=== PATIENT | female | born 1960 | race Caucasian/White ===

== ENCOUNTER 2018-07-28 07:22 | Day surgery (SDC) | payer MEDICARE ==
[~2018-07-28] VITALS: Ht 160 cm; Wt 140.5 kg
[2018-07-28] VITALS (11 sets, daily range): BP systolic 110–168; BP diastolic 61–89; PULSE 85–102; TEMP 97.8
[2018-07-28] MEDS ORDERED: PRILOSEC 20MG20 MG PO (08:11)
[2018-07-28] MEDS ORDERED: CLARITIN 1010 MG/TAB PO (08:11)
[2018-07-28] MEDS ORDERED: FLONASEALLERGY NS (08:12)
[2018-07-28] MEDS ORDERED: GLUCOPHAGE1000 MG PO (08:13)
[2018-07-28] MEDS ORDERED: ARMOUR THYROID15 MG (08:16)
[2018-07-28 08:40] LABS: HEMATOCRIT 42.3 % (37.0-47.0); HEMOGLOBIN 12.6 g/dl (12.5-16.0); MEAN CELL VOLUME 89 fl (80.0-100.0); MEAN CORPUSCULAR HEMOGLOBIN 26 pg (27.0-31.0); MEAN CORPUSCULAR HGB CONC 30 g/dl (33.0-37.0); PLATELET COUNT 212 K/mm3 (130-400); RED BLOOD COUNT 4.77 M/mm3 (4.10-5.30); REDCELL DISTRIBUTION WIDTH-CV 14.5 % (11.5-14.5)
[2018-07-28 08:50] LABS: INR 1.1 (0.8-3.0); PROTHROMBIN TIME 12.4 SECONDS (9.7-12.8)
[2018-07-28 09:14] LABS: CALCIUM 9.1 mg/dL (8.4-10.2); CREATININE, serum 0.57 mg/dL (0.52-1.25); POTASSIUM 4.1 mmol/L (3.4-5.0)
--- NOTE | 2018-07-28 09:17 | NUR ---
ALL MEDICATIONS GIVEN VIA VERBAL ORDER WITH READBACK WITH MD. SEE MERGE FOR ALL MEDICATION ADMIN TIMES.
--- NOTE | 2018-07-28 10:30 | NUR ---
PT TO [facility] [address]ED [address] SWEEPER, FATHER WITH PT, REVIEWED ACTIVITY AND PRECAUTIONS WITH PT ON LYING FLAT AND NOT BEDING RIGHT LEG, CALL LIGHT IN REACH, SITE HAS TEGRADERM ONLY OVER PUNCTURE.
--- NOTE | 2018-07-28 10:45 | NUR ---
PT C/O HEADACHE, TYLENOL GIVEN ORDERED, OTHER ASSESSMENT REMAINS THE SAME, DECLINES FOOD AT THIS TIME, SIPS ON WATER
[2018-07-28] MEDS ORDERED: ASPIRIN E.C. 8181 MG PO (11:28)
[2018-07-28] MEDS ORDERED: IMDUR 60MG60 MG/TAB PO (11:29)
[2018-07-28] MEDS ORDERED: LOPRESSOR 225 MG/TAB PO (11:29)
--- NOTE | 2018-07-28 11:45 | NUR ---
CON'T SAME, PT EATS FRUIT. STATES H/A IS FEELING BETTER, NO OTHER REQUESTS
--- NOTE | 2018-07-28 13:15 | NUR ---
used pillows behind back for comfort, reviewed with pt discharge inst. on new RX x3, will pickup at [facility], information given. Also appt made for pt for followup. Reviewed activity with pt on site, how to care for site, shower and precautions with verbal understanding.
[2018-07-28] MEDS ORDERED: LIPITOR 80MG80 MG PO (13:35)
--- NOTE | 2018-07-28 14:30 | NUR ---
pt sat on edge of bed, tolerated well, walked to b/r to void via cane, gait steady. site unchanged. IV d'cd intact. pt up in room, dressed self, has discharge paper work, discharged via w/c at 1445 to car with father
== END 2018-07-28 14:45 | disposition home or self-care (01) ==
LOC: COL.CAR 07:22 → EDBD 07:30 → COL.CAR 14:45
PROVIDERS: Internal Medicine Cardiovascular Disease
DX: I25.10 Atherosclerotic heart disease of native coronary artery without angina pectoris (principal); R94.39 Abnormal result of other cardiovascular function study; E11.9 Type 2 diabetes mellitus without complications; E66.01 Morbid (severe) obesity due to excess calories; Z68.43 Body mass index [BMI] 50.0-59.9, adult; G47.33 Obstructive sleep apnea (adult) (pediatric); F41.8 Other specified anxiety disorders; F32.9 Major depressive disorder, single episode, unspecified; M79.7 Fibromyalgia; Z88.1 Allergy status to other antibiotic agents; Z88.6 Allergy status to analgesic agent; Z91.030 Bee allergy status; Z79.51 Long term (current) use of inhaled steroids; Z79.84 Long term (current) use of oral hypoglycemic drugs; Z87.891 Personal history of nicotine dependence; Z83.3 Family history of diabetes mellitus; Z82.3 Family history of stroke; Z82.49 Family history of ischemic heart disease and other diseases of the circulatory system
CPT/HCPCS: C1760; C1769; C1887; C1894; J0153; J1644; J2250; J3010; Q9967

== ENCOUNTER 2023-12-21 16:26 | Inpatient (IN) | payer MEDICARE, OTHER ==
[~2023-12-21] VITALS: Ht 160 cm; Wt 137.0 kg
[2023-12-21] VITALS (7 sets, daily range): BP systolic 83–140; BP diastolic 50–81; PULSE 84–157; TEMP 98.2–99.4
[~2023-12-21 16:26] MED LIST: ARMOUR THYROID15 MG; ASPIRIN E.C. 8181 MG PO; CLARITIN 1010 MG/TAB PO; FLONASEALLERGY NS; GLUCOPHAGE1000 MG PO; IMDUR 60MG60 MG/TAB PO; LIPITOR 80MG80 MG PO; LOPRESSOR 225 MG/TAB PO; PRILOSEC 20MG20 MG PO
[2023-12-21] MEDS ORDERED: NOVOLOG FLEX100 U/ML SQ (17:34)
[2023-12-21] MEDS ORDERED: SYNTHROID 0.0.025 MG PO (17:36)
[2023-12-21] MEDS ORDERED: LOPRESSOR 550 MG/TAB PO (17:38)
[2023-12-21] MEDS ORDERED: ULTRAM 50MG TAB50 MG PO ×2 (17:39→21:33)
[2023-12-21] MEDS ORDERED: HCTZ 25MG TAB25 MG PO (17:40)
[2023-12-21] MEDS ORDERED: BASAGLAR K100 UNIT/1 SQ (17:40)
[2023-12-21] MEDS ORDERED: MAG-OX 400400 MG/TAB PO (17:41)
[2023-12-21] MEDS ORDERED: ZINC7.5 MG PO (17:42)
[2023-12-21] MEDS ORDERED: Amiodarone 450 MG in D5W Excel 250 ML IV SCH ×2 (17:45→23:51)
[2023-12-21] MEDS ORDERED: *Potassium Replacement Protocol MC SCH ×2 (17:45→20:15)
[2023-12-21] MEDS ORDERED: Heparin 5,000 UNITS/ML 1 ML VIAL IV PRN (17:45)
[2023-12-21] MEDS ORDERED: Heparin/D5W 250 ML IV SCH (17:45)
[2023-12-21] MEDS ORDERED: metFORMIN 500 MG TAB PO SCH (17:59)
[2023-12-21] MEDS ORDERED: Insulin Lispro (HumaLOG) SQ SCH (18:00)
[2023-12-21] MEDS ORDERED: Insulin Glargine-ygfn (Lantus) SQ SCH (18:00)
[2023-12-21] MEDS ORDERED: Dextrose 50% Water 25 GM/50 ML SYRINGE IV PRN (18:00)
[2023-12-21] MEDS ORDERED: hydroCHLOROthiazide 25 MG TAB PO SCH (18:00)
[2023-12-21] MEDS ORDERED: Glucagon 1 MG VIAL IM PRN (18:00)
[2023-12-21] MEDS ORDERED: Dextrose (Glucose) 15 GM (4 x 3.75 GM) Chewable TABLET PACK PO PRN (18:00)
[2023-12-21] MEDS ORDERED: Metoprolol Tartrate 50 MG TAB PO SCH ×2 (18:00→21:00)
--- NOTE | 2023-12-21 18:00 | NUR ---
PT ON THE FLOOR VIA EMS. PER [facility] AT [facility] DURING REPORT, 1 BEG BUG NOTED ON PTS SHOE. PER REPORT PT DIDNT GET A SHOWER OR BED BATH AT [facility]. UPON ARRIVAL PT ESCORTED TO ROOM 359 AND SHOWERED BY THIS RN AND PCT. PT STATES "THIS IS DISCRIMINATORY", THIS NURSE EDUCATED PT ON PROTOCOLS AND THAT IT IS FOR PREVENTION. NO BED BUGS NOTED DURING SHOWER. PT PLACED IN FALL RISK ITEMS AND ESCORTED TO ROOM 357 VIA WHEELCHAIR. PT HAS 2 IV SITES TO LEFT FOREARM. AMIODARONE RUNNING AT 1 MG/MIN DURING EMS TRANSFER. PT DENIES PAIN. FAVIO SKIN NOTED UNDER PANUS AND UNDER BREASTS. PT DENIES NEEDS. BED IN LOWEST POSITION, CALL LIGHT IN REACH, BED ALARM ON
[2023-12-21 18:11] LABS: MEAN CELL VOLUME 79 fl (80.0-100.0); MEAN CORPUSCULAR HGB CONC 30 g/dl (33.0-37.0); MEAN PLATELET VOLUME 10.5 fl (7.4-10.4); PLATELET COUNT 312 K/mm3 (130-400); RED BLOOD COUNT 3.44 M/mm3 (4.10-5.30)
[2023-12-21 18:13] LABS: HEMATOCRIT 27.3 % (37.0-47.0); HEMOGLOBIN 8.1 g/dl (12.5-16.0); MEAN CORPUSCULAR HEMOGLOBIN 24 pg (27-31); PARTIAL THROMBOPLASTIN TIME 30.2 SECONDS (26.0-37.0)
[2023-12-21 18:23] LABS: CALCIUM 9.2 mg/dL (8.4-10.2); CREATININE, serum 1.71 mg/dL (0.57-1.11); POTASSIUM 3.2 mEq/L (3.5-4.5)
--- NOTE | 2023-12-21 18:30 | NUR ---
BLOOD SUGAR TAKEN BEFORE FACILITY WRISTBAND PLACED. BLOOD SUGAR 91 PER PCT
--- NOTE | 2023-12-21 19:45 | NUR ---
PT REPORTS TAKING LOPRESSOR, HCTZ, AND SYNTHROID THIS MORNING AND REFUSES AT THIS TIME. NEW AMIODARONE BAG HUNG AT 1 MG/MIN. HEPARIN BOLUS GIVEN AND HEPARIN DRIP STARTED AT 23 MLS/HR, COSIGNED WITH ROMERO ASIF. PT DENIES NEEDS. BED IN LOWEST POSITION, CALL LIGHT IN REACH, BED ALARM ON. REPORT GIVEN TO ROMERO ASIF
--- NOTE | 2023-12-21 20:00 | NUR ---
UPON SHIFT ASSESSMENT, PATIENT SITTING ON SIDE OF BED C/O SOA. LUNG SOUNDS CLEAR, O2 SAT 95 % ON RA. HEPARIN GTTS RUNNING IN LT FA AT 23ML/HR AND AMIO DRIP RUNNING AT 17.6 ML/HR. PATIENT EXHIBITS EMMANUEL WHILE CHANGING POSITION. PATIENT STILL TACHYCARDIC AT 150 BPM.
[2023-12-21] MEDS ORDERED: Potassium Bicarbonate/Citrate 20 MEQ Effervescent TAB PO SCH (20:15)
[2023-12-21] MEDS ORDERED: Atorvastatin 80 MG TAB PO SCH (21:00)
--- NOTE | 2023-12-21 21:00 | NUR ---
PATIIENT HR IMPROVING FROM 155 BPM TO 100.
[2023-12-21] MEDS ORDERED: traMADol 50 MG TAB PO SCH (21:34)
--- NOTE | 2023-12-21 21:48 | NUR ---
PATIENT APPEARS DIAPHORETIC PATIENT C/O OF CHEST TIGHTNESS AND SOA. CALL PLACED TO HOSPITALIST. VORB FOR TROPININ AND EKG GIVEN. VS CURRENTLY WNL.
--- NOTE | 2023-12-21 22:03 | NUR ---
ENTERED PATIENT'S ROKOM. PATIENT C/O OF THROAT "FEELING LIKE A TIRE IS WRAPPED AROUND IT". THROAT SOUNDS ARE CLEAR AND AIR WAY PATENT, RT CALLED AND CONFIRMED NO AIRWAY RESTRICTIION. VS ARE WNL.
--- NOTE | 2023-12-21 22:30 | NUR ---
CALL PLACED TO HOSPITALIST TROPONIN ELEVATED 0.070. REPEAT VITALS-83/50 BP.VORB TO BOULUS 500ML NS GIVEN. PLACED PATIENT IN TRENDELENBERG.
[2023-12-21 23:52] LABS: URINE APPEARANCE CLEAR (CLEAR/HAZY); URINE BLOOD NEGATIVE (NEGATIVE); URINE COLOR YELLOW (YELLOW); URINE GLUCOSE NEGATIVE (NEGATIVE); URINE KETONE NEGATIVE (NEGATIVE); URINE NITRATE NEGATIVE (NEGATIVE); URINE PROTEIN(semi-quant) NEGATIVE (NEGATIVE); URINE UROBILINOGEN 0.2 E.U/dL (0.2-1.0)
[2023-12-22] VITALS (18 sets, daily range): BP systolic 75–143; BP diastolic 50–96; PULSE 66–90; TEMP 97.8–98
[2023-12-22 00:18] LABS: COLLECTION METHOD CLEAN CATCH
[2023-12-22] MEDS ORDERED: Ondansetron 4 MG/2 ML VIAL IV PRN (00:30)
--- NOTE | 2023-12-22 01:10 | NUR ---
CALL PLACED TO HOSPITALIST, WHEN PATIENTHOB WAS ELEVATED TO 30 DEGREES PATIENT BECAME HYPOTENSIVE 75/50 AND WHEN PLACED IN TRENDELENBERG BP WAS 131/76. ORDERS TO BOLUS REMAINDER OF 500ML OF NS GIVEN.
--- NOTE | 2023-12-22 01:36 | NUR ---
500 ML BOLUS COMPLETE BP 92/55 PULSE 79 O2 99% ON 6L OXY MASK
[2023-12-22 02:43] LABS: BASO # 0.1 K/mm3 (0.0-0.2); BASO % 0.7 % (0.0-2.0); EOS % 0.2 % (0.0-4.0); GRAN # 12.2 K/mm3 (1.4-6.5); GRAN % 80.2 % (42.2-75.2); LYMPH # 1.4 K/mm3 (1.2-3.4); LYMPH % 9.4 % (20.0-51.0); MEAN CELL VOLUME 80 fl (80.0-100.0); MEAN CORPUSCULAR HGB CONC 29 g/dl (33.0-37.0); MEAN PLATELET VOLUME 10.8 fl (7.4-10.4); MONO # 1.3 K/mm3 (0.1-0.6); MONO % 8.7 % (1.7-9.3); PLATELET COUNT 361 K/mm3 (130-400); RED BLOOD COUNT 3.74 M/mm3 (4.10-5.30); REDCELL DISTRIBUTION WIDTH-CV 16.1 % (11.5-14.5)
[2023-12-22 02:45] LABS: HEMOGLOBIN 8.7 g/dl (12.5-16.0); MEAN CORPUSCULAR HEMOGLOBIN 23 pg (27-31)
[2023-12-22 03:15] LABS: ALBUMIN 3.4 g/dL (3.4-4.8); CALCIUM 9.4 mg/dL (8.4-10.2); CREATININE, serum 2.19 mg/dL (0.57-1.11); MAGNESIUM 2.1 mg/dL (1.6-2.6); PHOSPHOROUS 4.9 mg/dL (2.3-4.7)
[2023-12-22] MEDS ORDERED: Isosorbide Mononitrate CR (24-HR) 60 MG TAB PO SCH (07:30)
--- NOTE | 2023-12-22 07:45 | NUR ---
Awake and resting in bed; Patient reports some shortness of breath at rest but states it is "better". 02 currenlty 100% on 4L oxymask. Switched to 3L NC due to o2 reading 100%. Still reports feeling generally tired and endorses lower back pain which is chronic in nature. Pain medication to be administered with am medications and assisted with repositioning. Call light left within reach. Will continue to monitor.
--- NOTE | 2023-12-22 08:59 | NUR ---
pull worker met with patient to discuss discharge planning. Patient currently lives in [place] with her mother, father and brother. Patient reports her mother is her best point of contact, Yasmin, P# [phone]. PCP is Dr. Watkins, Pharmacy is [facility]. Patient reports she has "[employer]", [employer], [employer]. No DPOA-HC and patient was not interested in completing one during the hospital stay. DME is cane and CPAP. Patient is not on oxygen normally during the day. Patient reports that she "insists" on being independent with ADLS unless she is having a really bad day. Patient reports to be able to transport herself to appointments if needed but has family to assist her with this. Patient would like to return home at time of discharge. Discharge plan: Home
[2023-12-22] MEDS ORDERED: NS 1,000 ML IV SCH (09:45)
[2023-12-22] MEDS ORDERED: 1/2 NS 1,000 ML IV SCH (09:45)
[2023-12-22] MEDS ORDERED: 1/2 NS 500 ML IV SCH (09:45)
[2023-12-22] MEDS ORDERED: cefTRIAXone 2 G in Water For Injection,Sterile 20 ML IV SCH (09:45)
[2023-12-22] MEDS ORDERED: GLUCOPHAGE XR500 M1 PO (09:48)
--- NOTE | 2023-12-22 11:03 | NUR ---
Initial visit; Telegraph Inspector introduced herself to patient who declined spiritual care immediately. Telegraph Inspector wished her well.
[2023-12-22 12:35] LABS: INR 1.7 (0.8-3.0); PROTHROMBIN TIME 18.3 SECONDS (9.7-12.8)
--- NOTE | 2023-12-22 12:38 | NUR ---
PATIENT DROWSY BUT RESPONDS APPROPRIATELY. VSS. PATIENT DENIES PAIN OR NAUSEA. TO CONTINUE IV FLUIDS, AMIODARONE, AND IV HEPARIN PER PROVIDER'S INSTRUCTIONS. PATIENT PROVIDED CALL LIGHT, BED TO LOWEST POSITION, X3 BEDRAILS IN PLACE. PATIENT CONTINUED ON 2 L/MIN O2. TRANSFER OF CARE REPORT TO ROMERO GOLDEN.
--- NOTE | 2023-12-22 14:00 | NUR ---
Patient has voided just once this shift and had 150 ml of orange concentrated apprearing urine. NS running at 75 ml/hr. Discussed with hospitalist and suspects kidney injury due to IV contrast, which would not be improved with increasing IV intake. Will continue to monitor but no changes made to IV therapy at this time.
--- NOTE | 2023-12-22 19:29 | NUR ---
PATIENT LAYING IN BED, ALERT AND CALM. IV'S IN LEFT HAND AND FOREARM. ON 2L OXYGEN NASAL CANNULA. NO ACUTE EVENTS.
[2023-12-22] MEDS ORDERED: Acetaminophen 325 MG TAB PO PRN (22:00)
[2023-12-22 23:03] LABS: PARTIAL THROMBOPLASTIN TIME 71.1 SECONDS (26.0-37.0)
[2023-12-23] VITALS: BP 116/62; PULSE 72
[2023-12-23 04:00] VITALS: BP 134/72; PULSE 70
[2023-12-23 05:54] LABS: PARTIAL THROMBOPLASTIN TIME 92.1 SECONDS (26.0-37.0)
[2023-12-23 06:22] LABS: BASO # 0.1 K/mm3 (0.0-0.2); BASO % 0.8 % (0.0-2.0); EOS # 0.1 K/mm3 (0.0-0.7); EOS % 0.9 % (0.0-4.0); GRAN # 8.8 K/mm3 (1.4-6.5); GRAN % 74.5 % (42.2-75.2); LYMPH # 1.8 K/mm3 (1.2-3.4); LYMPH % 14.8 % (20.0-51.0); MEAN CELL VOLUME 81 fl (80.0-100.0); MEAN CORPUSCULAR HGB CONC 29 g/dl (33.0-37.0); MEAN PLATELET VOLUME 10.6 fl (7.4-10.4); MONO % 8.4 % (1.7-9.3); PLATELET COUNT 335 K/mm3 (130-400); RED BLOOD COUNT 3.49 M/mm3 (4.10-5.30); REDCELL DISTRIBUTION WIDTH-CV 16.4 % (11.5-14.5)
[2023-12-23 06:26] LABS: HEMATOCRIT 28.1 % (37.0-47.0); HEMOGLOBIN 8.1 g/dl (12.5-16.0); MEAN CORPUSCULAR HEMOGLOBIN 23 pg (27-31)
[2023-12-23 06:34] LABS: ALBUMIN 3.4 g/dL (3.4-4.8); CREATININE, serum 2.42 mg/dL (0.57-1.11); PHOSPHOROUS 4.6 mg/dL (2.3-4.7); POTASSIUM 3.5 mEq/L (3.5-4.5)
[2023-12-23] MEDS ORDERED: Potassium Bicarbonate/Citrate 20 MEQ Effervescent TAB PO ONE (06:45)
[2023-12-23] MEDS ORDERED: Potassium Chloride 100 ML IV SCH (06:45)
[2023-12-23] MEDS ORDERED: Insulin Lispro (HumaLOG) SQ SCH (08:00)
--- NOTE | 2023-12-23 09:31 | NUR ---
disposal worker attended interdisciplinary clinical rounding with Dr. Aranda. Jeremy should be able to move to the medical floor this afternoon. Discharge plan: Home
[2023-12-23] MEDS ORDERED: Amiodarone 200 MG TAB PO SCH (10:05)
[2023-12-23] MEDS ORDERED: Apixaban 5 MG TABLET PO SCH (10:07)
[2023-12-23 12:00] VITALS: BP 120/47; PULSE 77; TEMP 98
[2023-12-23 13:02] LABS: PARTIAL THROMBOPLASTIN TIME 69.3 SECONDS (26.0-37.0)
--- NOTE | 2023-12-23 14:09 | NUR ---
Patient received medical floor orders and was transferred to room 308. Personal belongings including CPAP, cell phone, IPAD, and tap grinder was transported to room. Alert and oriented, no complaints at this time. Report given to ROMERO Campbell.
[2023-12-23 15:53] VITALS: BP 104/65; PULSE 83; TEMP 98.8
--- NOTE | 2023-12-23 19:00 | NUR ---
SCOTT CASTELLANOS NOTIFIED @ 1900 THAT PT HAD A FEW BEATS OF V-TACH, BUT IF BACK IN NSR. NO NEW ORDERS AT THIS TIME
[2023-12-23 20:01] VITALS: BP 113/75; PULSE 91; TEMP 97.9
--- NOTE | 2023-12-23 20:36 | NUR ---
UPON SHIFT ASSESSMENT PATIENT WAS WEARING HOME CPAP AND AXO X4 LYING SUPINE IN BED. IV SITES TO LT ARM SHOWED MINIMAL BRIGHT RED BLOOD UNDER TEGADERM-FLUSHED WITH NO COMPLICATIONS. TELE IS CURRENTLY NS AND LUNG SOUNDS ARE CLEAR BUT SLIGHTLY DIMINISHED. PATIENT DENIES CHEST PAIN. EMMANUEL NOTED WHILE PATIENT AMBULATED TO RESTROOM, BUT RECOVERED WHEN RETURNED TO BED . VS ARE WNL AND BG 120. CALL LIGHT WITHIN REACH AND BED ALARM ON.
--- NOTE | 2023-12-23 20:43 | NUR ---
PANNUS EXCORIATED INTERDRY PLACED
[2023-12-24 00:01] VITALS: BP 110/76; PULSE 82; TEMP 98.5
[2023-12-24 03:20] VITALS: BP 103/46; PULSE 79; TEMP 98.5
--- NOTE | 2023-12-24 05:21 | NUR ---
CALL PLACED TO HOSPITALISTSCOTT. PATIENT RECIEVED SCHEDULED BEDSIDE EKG AND IS CURRENTLY IN A-FIB AT 87 BPM. TORB TO PASS ALONG TO CARDIOLOGY GIVEN. PATIENT VS ARE STABLE AND SHE DENIEES CHEST PAIN OR SOA AT THIS TIME.
--- NOTE | 2023-12-24 06:16 | NUR ---
call placed to [employer] freight trucker on-call. Got answering service and relayed message to tab cutting machine operator: EKG results-AFIB rate controlled at 87bpm.
[2023-12-24 06:49] LABS: BASO # 0.1 K/mm3 (0.0-0.2); BASO % 0.9 % (0.0-2.0); EOS # 0.2 K/mm3 (0.0-0.7); EOS % 1.8 % (0.0-4.0); GRAN # 8.2 K/mm3 (1.4-6.5); GRAN % 77.6 % (42.2-75.2); LYMPH # 1.1 K/mm3 (1.2-3.4); LYMPH % 10.8 % (20.0-51.0); MEAN CELL VOLUME 79 fl (80.0-100.0); MEAN CORPUSCULAR HGB CONC 29 g/dl (33.0-37.0); MEAN PLATELET VOLUME 10.1 fl (7.4-10.4); MONO # 0.9 K/mm3 (0.1-0.6); PLATELET COUNT 300 K/mm3 (130-400); REDCELL DISTRIBUTION WIDTH-CV 16.2 % (11.5-14.5)
[2023-12-24 06:52] LABS: HEMATOCRIT 26.8 % (37.0-47.0); HEMOGLOBIN 7.7 g/dl (12.5-16.0); MEAN CORPUSCULAR HEMOGLOBIN 23 pg (27-31)
[2023-12-24 07:11] LABS: ALBUMIN 3.3 g/dL (3.4-4.8); CALCIUM 9.3 mg/dL (8.4-10.2); CREATININE, serum 1.59 mg/dL (0.57-1.11); MAGNESIUM 2.1 mg/dL (1.6-2.6); PHOSPHOROUS 2.7 mg/dL (2.3-4.7); POTASSIUM 3.4 mEq/L (3.5-4.5)
--- NOTE | 2023-12-24 07:20 | NUR ---
Bedside report received from RN Shaila. Pt is awake sitting on side of bed with no complaints. Call light within reach.
[2023-12-24 08:06] VITALS: BP 123/73; PULSE 78; TEMP 98.1
[2023-12-24] MEDS ORDERED: Potassium Bicarbonate/Citrate 20 MEQ Effervescent TAB PO SCH (08:30)
[2023-12-24] MEDS ORDERED: ELIQUIS 5MG PO (10:21)
[2023-12-24] MEDS ORDERED: PACERONE400 MG PO (10:22)
--- NOTE | 2023-12-24 11:11 | NUR ---
Discharge instructions provided to pt and pt verbalized understanding of discahrge paperwork. INT to LH and LFA discontinued with tip intact, pt tolerated well with no complaints. Pt is leaving facility with family member.
[2023-12-24 11:45] VITALS: BP 83/46; PULSE 105; TEMP 98.3
--- NOTE | 2023-12-24 13:14 | NUR ---
Oil Recovery Operator met with patient to present and review IM form. Patient verbalized understanding and provided signature. SW placed form in chart and provided copy to patient.
== END 2023-12-24 11:59 | disposition home or self-care (01) | DRG 309 ==
LOC: MEDICAL 16:26 → ICU 12-22 02:12 → MEDICAL 12-23 13:54 → ICU 12-23 13:54 → MEDICAL 12-23 13:54
PROVIDERS: Internal Medicine; ADMIT Internal Medicine
PROC: 5A2204Z Restoration of Cardiac Rhythm, Single (ICD-10-PCS; principal; 2023-12-22)
DX: I48.0 Paroxysmal atrial fibrillation (principal); N17.9 Acute kidney failure, unspecified; N39.0 Urinary tract infection, site not specified; Z68.43 Body mass index [BMI] 50.0-59.9, adult; G47.33 Obstructive sleep apnea (adult) (pediatric); I25.10 Atherosclerotic heart disease of native coronary artery without angina pectoris; K21.9 Gastro-esophageal reflux disease without esophagitis; I13.10 Hypertensive heart and chronic kidney disease without heart failure, with stage 1 through stage 4 chronic kidney disease, or unspecified chronic kidney disease; E11.22 Type 2 diabetes mellitus with diabetic chronic kidney disease; E66.01 Morbid (severe) obesity due to excess calories; I48.92 Unspecified atrial flutter; M19.90 Unspecified osteoarthritis, unspecified site; G43.909 Migraine, unspecified, not intractable, without status migrainosus; D64.9 Anemia, unspecified; E87.6 Hypokalemia; I08.1 Rheumatic disorders of both mitral and tricuspid valves; N18.32 Chronic kidney disease, stage 3b; E03.9 Hypothyroidism, unspecified; Z79.4 Long term (current) use of insulin; Z79.82 Long term (current) use of aspirin; Z79.84 Long term (current) use of oral hypoglycemic drugs; Z79.899 Other long term (current) drug therapy; Z79.890 Hormone replacement therapy; Z88.2 Allergy status to sulfonamides; Z88.8 Allergy status to other drugs, medicaments and biological substances; Z91.030 Bee allergy status; Z99.89 Dependence on other enabling machines and devices; Z87.891 Personal history of nicotine dependence
CPT/HCPCS: J0282; J0696; J1644; J1815; J2405; J2704; J7030; J7060

== ENCOUNTER 2024-03-03 17:37 | Inpatient (IN) | payer MEDICARE, OTHER ==
[~2024-03-03] VITALS: Ht 160 cm; Wt 127.3 kg
[2024-03-03] VITALS (11 sets, daily range): BP systolic 94–138; BP diastolic 46–62; PULSE 63–74; TEMP 98.1–98.8
[~2024-03-03 17:37] MED LIST changes: +BASAGLAR K100 UNIT/1 SQ; +ELIQUIS 5MG PO; +GLUCOPHAGE XR500 M1 PO; +HCTZ 25MG TAB25 MG PO; +LOPRESSOR 550 MG/TAB PO; +MAG-OX 400400 MG/TAB PO; +NOVOLOG FLEX100 U/ML SQ; +PACERONE400 MG PO; +SYNTHROID 0.0.025 MG PO; +ULTRAM 50MG TAB50 MG PO; +ZINC7.5 MG PO
[2024-03-03] MEDS ORDERED: Ondansetron 4 MG/2 ML VIAL IV ONE (18:00)
[2024-03-03] MEDS ORDERED: NS 1,000 ML IV ONE (18:00)
[2024-03-03 18:12] LABS: INR 5.4 (0.8-3.0); PROTHROMBIN TIME 56.5 SECONDS (9.7-12.8)
[2024-03-03 18:15] LABS: BASO # 0.1 K/mm3 (0.0-0.2); BASO % 0.9 % (0.0-2.0); EOS # 0.2 K/mm3 (0.0-0.7); EOS % 1.3 % (0.0-4.0); GRAN # 9.1 K/mm3 (1.4-6.5); GRAN % 77.3 % (42.2-75.2); LYMPH # 1.4 K/mm3 (1.2-3.4); LYMPH % 11.6 % (20.0-51.0); MEAN CELL VOLUME 74 fl (80.0-100.0); MEAN CORPUSCULAR HGB CONC 26 g/dl (33.0-37.0); MEAN PLATELET VOLUME 11.4 fl (7.4-10.4); MONO % 8.3 % (1.7-9.3); PLATELET COUNT 400 K/mm3 (130-400); RED BLOOD COUNT 2.42 M/mm3 (4.10-5.30); REDCELL DISTRIBUTION WIDTH-CV 17.9 % (11.5-14.5)
[2024-03-03 18:16] LABS: MEAN CORPUSCULAR HEMOGLOBIN 19 pg (27-31)
[2024-03-03 18:17] LABS: HEMOGLOBIN 4.6 g/dl (12.5-16.0)
[2024-03-03 18:25] LABS: ALANINE AMINOTRANSFERASE 11 U/L (0-55); ALBUMIN 3.8 g/dL (3.4-4.8); ALKALINE PHOSPHATASE 73 U/L (40-150); ANION GAP 17 mmol/L (7-16); AST,SGOT 19 U/L (5-34); BILIRUBIN,TOTAL 0.9 mg/dL (0.2-1.2); BLOOD UREA NITROGEN 28 mg/dL (10-20); CALCIUM 9.8 mg/dL (8.4-10.2); CHLORIDE 100 mEq/L (98-107); CREATININE, serum 1.81 mg/dL (0.57-1.11); GLUCOSE 139 mg/dL (70-99); POTASSIUM 3.7 mEq/L (3.5-4.5); SODIUM 140 mEq/L (136-145); TOTAL PROTEIN 7.9 g/dl (6.2-8.1)
[2024-03-03 18:35] LABS: ACETONE,SERUM NEGATIVE
[2024-03-03 20:07] LABS: RETIC # 0.07 M/mm3 (0.02-0.16); RETIC % 3.3 % (0.5-3.52)
[2024-03-03] MEDS ORDERED: Furosemide 40 MG/4 ML VIAL IV ONE (20:15)
[2024-03-03] MEDS ORDERED: Ondansetron 4 MG/2 ML VIAL IV PRN (21:00)
[2024-03-03] MEDS ORDERED: Acetaminophen 500 MG TAB PO PRN (21:00)
[2024-03-03] MEDS ORDERED: Polyethylene Glycol 3350 17 GM PDS PO PRN (21:00)
[2024-03-03] MEDS ORDERED: Promethazine 25 MG TAB PO PRN (21:00)
[2024-03-03] MEDS ORDERED: Dextrose (Glucose) 15 GM (4 x 3.75 GM) Chewable TABLET PACK PO PRN (21:30)
[2024-03-03] MEDS ORDERED: Insulin Glargine-ygfn (Lantus) SQ SCH (21:30)
[2024-03-03] MEDS ORDERED: Dextrose 50% Water 25 GM/50 ML SYRINGE IV PRN (21:30)
[2024-03-03] MEDS ORDERED: Glucagon 1 MG VIAL IM PRN (21:30)
[2024-03-03 22:24] LABS: URINE APPEARANCE CLEAR (CLEAR/HAZY); URINE BLOOD NEGATIVE (NEGATIVE); URINE COLOR YELLOW (YELLOW); URINE GLUCOSE NEGATIVE (NEGATIVE); URINE KETONE NEGATIVE (NEGATIVE); URINE NITRATE NEGATIVE (NEGATIVE); URINE PROTEIN(semi-quant) NEGATIVE (NEGATIVE); URINE UROBILINOGEN 0.2 E.U/dL (0.2-1.0)
[2024-03-03 22:47] LABS: COLLECTION METHOD CLEAN CATCH
--- NOTE | 2024-03-03 22:50 | NUR ---
Arrived to medical floor via stretcher from ER- was able to walk with assist to bed, Alert/oriented, Blood infusing at 150cc/hr to L/ac IV site, Vitals taken , stable, pt tolerating blood without signs of adverse reactions- will start admission paperwork at this time.
[2024-03-03] MEDS ORDERED: PACERONE200 MG PO (23:03)
[2024-03-03] MEDS ORDERED: LIPITOR 80MG80 MG PO (23:09)
[2024-03-03] MEDS ORDERED: ASPIRIN E.C. 8181 MG PO (23:10)
[2024-03-04] VITALS (10 sets, daily range): BP systolic 98–136; BP diastolic 45–76; PULSE 67–73; TEMP 97.4–98.6
--- NOTE | 2024-03-04 00:15 | NUR ---
Blood transfusion completed- no signs/symptoms of adverse reactions-Pt on fall risk- protocol followed/bed alarm on, SCD,s on per orders, tele on -71/NSR
[2024-03-04] MEDS ORDERED: Acetaminophen 500 MG TAB PO PRN (00:54)
--- NOTE | 2024-03-04 03:25 | NUR ---
Called Dr. Crum regarding a couple thing- labs urine specimen ?UTI , also repeat Hgb after blood? ordered for 0500-is that still ok or sooner? Also informed I had to change the med rec because it was not correct from the ER and she had already ordered some meds,{ amiodarone ordered in the wrong dose-not 400mg /day but correct is 200mg/day} also meds added on med rec that pt takes.
--- NOTE | 2024-03-04 05:15 | NUR ---
Did not sleep much last night,, was given tylenol at this time for back pain, taking just sips of water/ice chips, does not want to eat any food it will make me sick"
[2024-03-04] MEDS ORDERED: traMADol 50 MG TAB PO PRN (06:00)
[2024-03-04 06:56] LABS: BASO # 0.1 K/mm3 (0.0-0.2); EOS # 0.1 K/mm3 (0.0-0.7); EOS % 0.8 % (0.0-4.0); GRAN # 8.6 K/mm3 (1.4-6.5); GRAN % 76.8 % (42.2-75.2); LYMPH # 1.3 K/mm3 (1.2-3.4); LYMPH % 11.6 % (20.0-51.0); MEAN CELL VOLUME 76 fl (80.0-100.0); MEAN CORPUSCULAR HGB CONC 29 g/dl (33.0-37.0); MEAN PLATELET VOLUME 11.5 fl (7.4-10.4); MONO # 1.1 K/mm3 (0.1-0.6); MONO % 9.4 % (1.7-9.3); PLATELET COUNT 345 K/mm3 (130-400); RED BLOOD COUNT 2.68 M/mm3 (4.10-5.30); REDCELL DISTRIBUTION WIDTH-CV 18.5 % (11.5-14.5)
[2024-03-04 07:08] LABS: HEMATOCRIT 20.4 % (37.0-47.0); MEAN CORPUSCULAR HEMOGLOBIN 22 pg (27-31)
[2024-03-04 07:23] LABS: CALCIUM 9.2 mg/dL (8.4-10.2); CREATININE, serum 1.85 mg/dL (0.57-1.11); POTASSIUM 3.7 mEq/L (3.5-4.5)
[2024-03-04] MEDS ORDERED: Insulin Lispro (HumaLOG) SQ SCH (08:00)
--- NOTE | 2024-03-04 08:01 | NUR ---
Call placed to Dr. Justin to report last Hgb 6. States he will place orders.
--- NOTE | 2024-03-04 08:46 | NUR ---
Patient resting in bed, alert and oriented x 4. States nausea comes and goes. Right now ok. Telemetry in place NSR. Pt signed consent for blood transfusion. Aware. Assessment completed, meds given. Awaiting for the blood to be ready. Call light within reach.
[2024-03-04] MEDS ORDERED: Amiodarone 200 MG TAB PO SCH ×2 (09:00)
--- NOTE | 2024-03-04 10:07 | NUR ---
SW met with patient to complete initial assessment for discharge planning. Patient verified that she lives in [place] with her parents and brother. She lists her mother Yasmin ([phone]) as her best contact. Patient denies having completed a DPOA and declines to complete one at this time. Patient sees Roland Mccoy and uses [facility]. Patient states her only DME is cane and CPAP. Patient plans to return home at discharge and states she is independent with all activities. Discharge plan: Home
--- NOTE | 2024-03-04 12:04 | NUR ---
Patient receiving blood transfusion withount mario signs or symptoms present. Pt alert and oriented x4, denies any pain, discomfort. Aware of been transfered to another facility by EMS while receiving the rest of the blood.
--- NOTE | 2024-03-04 12:30 | NUR ---
Patient was picked up bye EMS. Patient is getting the rest of the transfusion while in her way to [facility]. 2 Hrs of transfusion remaiing. Unable to document the rest of the transfusion. So far patient has been ok, with no complications. Pt stated some headache that started before the transfucion, tramadol provided since Tylenol was not available per orders. Pt requested it. Zofran given too, to prevent nausea along the transportation. Telemetry was removed.
--- NOTE | 2024-03-04 12:35 | NUR ---
Pt's cellphone, shoes and clothes went with her in a plastic bag. Her cane was transfered with her too.
--- NOTE | 2024-03-04 13:21 | NUR ---
Report given to ROMERO Barker at [facility] [phone].
[2024-03-04] MEDS ORDERED: Atorvastatin 80 MG TAB PO SCH (21:00)
== END 2024-03-04 12:30 | disposition short-term general hospital (02) | DRG 812 ==
LOC: COL.ER 17:37 → MEDICAL 20:15
PROVIDERS: Physician Assistant; ADMIT Internal Medicine
DX: D64.9 Anemia, unspecified (principal); N17.9 Acute kidney failure, unspecified; K74.60 Unspecified cirrhosis of liver; N18.9 Chronic kidney disease, unspecified; I48.91 Unspecified atrial fibrillation; E11.9 Type 2 diabetes mellitus without complications; G47.33 Obstructive sleep apnea (adult) (pediatric); E03.9 Hypothyroidism, unspecified; Z66 Do not resuscitate; Z79.01 Long term (current) use of anticoagulants; Z79.84 Long term (current) use of oral hypoglycemic drugs
CPT/HCPCS: J1815; J1940; J2405; J7030; P9016